=== PATIENT | female | born 1960 | race Caucasian/White ===

== ENCOUNTER 2016-10-12 22:13 | Emergency (ER) | payer MEDICARE, OTHER ==
[2016-10-12 22:33] VITALS: BP 135/83
[2016-10-12] MEDS ORDERED: Ketorolac 10 MG Tab PO ONE (22:36)
--- NOTE | 2016-10-15 10:08 | ER ---
DATE SEEN: 10/12/2016 CHIEF COMPLAINT: Right shoulder pain. HISTORY OF PRESENT ILLNESS: A 56-year-old female, who complains of right shoulder pain since this evening, [id number] pain and worse with any movement. She did fall about 2 weeks ago, and supported herself with the right upper extremity. Her pain does not seem to radiate anywhere. ALLERGIES: Celebrex and tramadol. REVIEW OF SYSTEMS: CARDIORESPIRATORY: No chest pain. No shortness of breath. HEAD AND NECK: No headache or neck pain. PHYSICAL EXAMINATION: GENERAL: Not in distress. VITAL SIGNS: Afebrile and pulse was 69 beats per minute. EXTREMITIES: Right shoulder, no obvious swelling or deformity. There is tenderness on the subacromial area, and a positive impingement sign was elicited. However, she has normal peripheral pulses, but diminished range of motion especially on abduction. There was no tenderness of the neck or the sternum. FINAL IMPRESSION: Subacromial bursitis. PLAN: 1. Toradol 10 mg p.o. t.i.d. with food. 2. Follow up in the office. Consider a corticosteroid injection as an outpatient. TIME SEEN: 10:30 p.m. /[id number] LAMBERT/ROHIT
== END 2016-10-12 22:45 | disposition home or self-care (01) ==
LOC: FB.ED 22:13
DX: M75.51 Bursitis of right shoulder (principal); Z88.5 Allergy status to narcotic agent; Z88.8 Allergy status to other drugs, medicaments and biological substances
CPT/HCPCS: 99283; A9270-GY

== ENCOUNTER 2017-09-02 06:32 | Day surgery (SDC) | payer MEDICARE, OTHER ==
[2017-09-02] MEDS ORDERED: Sodium Chloride 0.9% 10 ML Syringe FLUSH PRN (06:45)
[2017-09-02] MEDS: Lactated Ringers 1,000 ML IV SCH (07:45)
[2017-09-02] MEDS ORDERED: Midazolam 1 MG/ML 2 ML SDV IV ONE (08:00)
[2017-09-02] MEDS ORDERED: Propofol 200 MG/20 ML SDV IV ONE (08:00)
--- NOTE | 2017-09-02 08:05 | PCM.HPR ---
H & P Addendum review - H & P Addendum Review Date of Original H & P: 08/04/17 Date Reviewed: 09/02/17 Time Reviewed: 08:00 Patient was Examined: No Changes
--- NOTE | 2017-09-02 09:16 | PCM.OPNOTE ---
- General Post-Op/Procedure Note Date of Surgery/Procedure: 09/02/17 Operative Procedure(s): EGJ and colonoscopy with polypectomy Findings: Normal EGF Sig Polyp and tics Pre Op Diagnosis: Abd pain, GERD, FH Polyps Post-Op Diagnosis: Same Anesthesia Technique: MAC Primary Surgeon: Dirk Yancey Complications: None Condition: Good
[2017-09-02 10:54] VITALS: BP 140/70
--- NOTE | 2017-09-02 15:51 | OR ---
DATE OF OPERATION: 09/02/2017 SURGEON: Dirk Yancey MD PREOPERATIVE DIAGNOSES: 1. Upper abdominal pain. 2. Gastroesophageal reflux disease. 3. Family history of colon polyps. POSTOPERATIVE DIAGNOSES: 1. Normal upper endoscopy. 2. Sigmoid diverticulosis. 3. Sigmoid colon polyp. PROCEDURE PERFORMED: 1. Esophagogastroduodenoscopy. 2. Colonoscopy with polypectomy. ANESTHESIA: IV sedation. PROCEDURE IN DETAIL: The patient was brought to the procedure room, where she was placed on her left side and IV sedation administered. Oral bite block was placed and the upper endoscope advanced into the esophagus under direct vision without difficulty. Vocal cords were viewed and were normal. Scope was advanced into the stomach pouch. Gastrojejunostomy anastomosis was normal. The jejunal limb was intubated for 20 cm and all mucosal surfaces are normal. I could retroflex in the gastric pouch and the squamocolumnar junction appears normal. There is no evidence of reflux esophagitis. There are no ulcers or erosions or inflammation present. Air was removed from the stomach pouch and the scope withdrawn through the remaining esophagus, which appears normal. The patient tolerated this portion of the procedure well. Next, colonoscopy was performed, after digital rectal exam was performed, which was normal. The colonoscope was inserted and advanced to the level of the cecum without difficulty. Cecal position was confirmed by identifying the appendiceal lumen and ileocecal valve. Prep was good and surfaces were well visualized. Upon withdrawing the scope, the ascending, transverse, and descending colon were normal in appearance. The sigmoid colon was somewhat tortuous and spastic and multiple diverticula were present. There was a 6-mm sessile polyp located at 35 cm from the anal verge that was removed with the cautery snare and retrieved in the polyp trap. The rectum was normal and retroflexion was normal. Air was removed and the scope withdrawn. The patient tolerated the procedure well and returned to recovery room in stable condition. The patient will be contacted with the pathology report when it returns. If the polyp is adenomatous, she should consider repeat colonoscopy again in 3 years. If the polyp is hyperplastic, she could wait 5 years until her next colonoscopy. /[id number] MONIKA/ROHIT
== END 2017-09-02 10:50 | disposition home or self-care (01) ==
LOC: FB.SDS 06:32
PROVIDERS: ATTEND Surgery
DX: D12.5 Benign neoplasm of sigmoid colon (principal); K21.9 Gastro-esophageal reflux disease without esophagitis; K57.30 Diverticulosis of large intestine without perforation or abscess without bleeding; F32.9 Major depressive disorder, single episode, unspecified; F41.9 Anxiety disorder, unspecified; I10 Essential (primary) hypertension; E66.01 Morbid (severe) obesity due to excess calories; Z68.41 Body mass index [BMI] 40.0-44.9, adult; Z98.84 Bariatric surgery status; Z83.71 Family history of colonic polyps; Z79.899 Other long term (current) drug therapy; Z88.6 Allergy status to analgesic agent; Z88.5 Allergy status to narcotic agent; Z88.8 Allergy status to other drugs, medicaments and biological substances
CPT/HCPCS: 00813-QZ; 88305; J2250; J2704; J7120

== ENCOUNTER 2017-09-04 15:03 | Emergency (ER) | payer MEDICARE, OTHER ==
[2017-09-04] MEDS ORDERED: Lidocaine 1% 20 ML MDV INFILT ONE (15:04)
[2017-09-04 20:57] VITALS: BP 156/83
--- NOTE | 2017-09-05 09:45 | CT ---
INDICATION: Head injury. CT HEAD WITHOUT CONTRAST: Serial contiguous 2.5 and 5-mm sections were obtained through the brain without contrast, 09/04/2017, and compared with 08/14. 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 Encephalomalacia is noted in that area. No shift of midline structures was identified. Lateral ventricles are minimally prominent and perhaps minimally more prominent than on the previous study. A subcortical infarct is noted in the right posteroparietal lobe white matter, with mildly decreased density irregularly scattered through the white matter, compatible with microvascular disease additionally. Internal carotid artery calcifications are noted. A probable lacunar infarct is noted in the posterior right basal ganglia and at the more anterior basal ganglia adjacent to the anterior limb of the right internal capsule. The more posterior area of decreased density is slightly more prominent than on the previous examination. The smaller, more anterior lesion is also more visible than on the previous study. No other definite abnormal area of density was identified - no bleeding site or hematoma was identified - no definite acute intracranial abnormality was seen. Soft tissue swelling is noted anteriorly on the right, extending along the right nasal bone. In the area of soft tissue swelling along the right nasal bone, there is evidence of a fracture of the right nasal bone, which appears to be acute, producing deviation to the left. There is also fracture of the left nasal bone with angulation medially of the fracture fragments of the left nasal bone. Fracture appears to be slightly comminuted anteriorly at the tip of the nasal bone. As visualized, the paranasal sinuses and mastoid air cells appear fairly well aerated. IMPRESSION: 1. No definite acute intracranial abnormality. 2. 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 3. Mild central atrophy minimally, if at all, increased compared with 2010. 4. Probable lacunar infarcts on the right at the basal ganglia. 5. Soft tissue swelling - hematoma suggested right frontal bone and along the right nasal bone. In the area of soft tissue swelling along the right nasal bone, there is evidence of a fracture of the right nasal bone, which appears to be acute, producing deviation to the left. There is also fracture of the left nasal bone with angulation medially of the fracture fragments of the left nasal bone. Fracture appears to be slightly comminuted anteriorly at the tip of the nasal bone. 6. Progressive mild degree of microvascular disease type changes in the white matter - correlate clinically as other cause of leukoencephalopathy cannot be excluded. Total Exam DLP = 1278.68 mGy-cm. MTDD
--- NOTE | 2017-09-05 10:17 | CT ---
INDICATION: Fall, head injury. CT CERVICAL SPINE: Spiral 2.5-mm axial sections were obtained through the cervical spine with sagittal and coronal reconstructions, 09/04/2017 - no comparison was available. Total Exam DLP = 484.63 mGy-cm. Degenerative changes are noted at the atlantoodontoid joint with narrowing and sclerosis present at the joint. The odontoid and atlas appear to be intact otherwise. Hypertrophic degenerative changes are noted at the lateral masses, C3-4, C4-5, C5-6, mostly on the left, with a tilt of the spine to the left noted. Uncinate joint hypertrophic degenerative changes are most prominent at C4-5, C5-6, and C6 -7. Narrowing of the disk spaces of C4-5, C5-6, and C6-7 are noted with anterior and posterior hypertrophic degenerative changes at those levels. Some impingement on those neural foramina at those levels is noted and appears to be most prominent on the left and especially at C4-5. Vertebral body heights were maintained without a definite fracture or dislocation identified. There does appear to be a very minimal anterolisthesis at C3-4. Prevertebral space appeared to be normal. Bone density appears to be normal. A definite fracture or dislocation was not identified. IMPRESSION: 1. No acute fracture or dislocation. 2. Osteoarthritis and degenerative disk disease, as noted above with some impingement on neural foramina. MTDD
--- NOTE | 2017-09-05 10:20 | CR ---
INDICATION: Arm injury. RIGHT FOREARM: Frontal and lateral views of the right forearm revealed somewhat demineralized appearance, raising question of osteoporosis - correlate clinically. A definite fracture or dislocation was not identified. IMPRESSION: 1. No acute fracture or dislocation. 2. Possible osteoporosis - correlate clinically. MTDD
--- NOTE | 2017-09-05 10:25 | CR ---
INDICATION: Right elbow injury. RIGHT ELBOW: Three views of the right elbow revealed suggestion of a small elbow joint effusion and with less than ideal visualization of the radial head, makes it difficult to exclude a radial head fracture that is undisplaced. Specific coned down views of the radial head may be helpful for further evaluation if clinically possible. No other evidence of a fracture or dislocation was seen. Report was called to Dr. Atkins at 1707 hours, 09/04/2017. [facility]
--- NOTE | 2017-09-05 10:30 | CR ---
INDICATION: Question fracture, coned down views. RIGHT ELBOW: Multiple images of the right elbow, numbering 4 in various projections, failed to definitely reveal a fracture site or a definite effusion. There does appear to be some very minimal degenerative change at the medial elbow joint compartment and no joint effusion at this time. IMPRESSION: No definite acute fracture or dislocation. Report was given in person to Dr. Atkins soon after the examination was completed, 09/04/2017. [facility]
--- NOTE | 2017-09-09 13:33 | ER ---
DATE SEEN: 09/04/2017 HISTORY OF PRESENT ILLNESS: This 57-year-old woman, who has had previously known brain tumor, was walking, went to [employer], and fell down as she tripped over a hydraulic lift that a pickup truck had put on the ground. This occurred outside [employer]. She fell face down. No loss of conscious. She thought perhaps she broke her left arm, but she did not. She has right frontal nasal contusion, mild nasal bleeding. Moderate headache. No compromised vision. Right elbow pain and right forearm discomfort. Right frontal hematoma. Right suprabrow medial hematoma, left chin-anterior mandible hematoma with abrasion. Tetanus up-to-date. Laceration in the transseptal dermis at the juncture of the most distal septum dermis as it meets both nares. Laceration 1.5 cm long. PAST MEDICAL HISTORY: History of gastric bypass surgery, subsequent GERD, gastritis with EGD on followup, history of colon polyps, on 09/02/2017 normal endoscopy, sigmoid diverticulosis, and sigmoid colon polyp with polyp removal. ALLERGIES: Documented Cymbalta, Ketoprofen, naproxen, tramadol, valsartan. CURRENT MEDICATIONS: 1. Flonase. 2. Fluoxetine. 3. Vitamin D. 4. Calcium carbonate. 5. Ziprasidone (Geodon). 6. Vitamin B. 7. Magnesium oxide. 8. Iron. 9. Carbonyl ascorbic acid. 10.Iron 100-vitamin C tablet. SOCIAL HISTORY: The patient, because of brain tumor, lives with her mother. Mother is here and assisting. The patient was brought by ambulance to the hospital for further evaluation. The patient mentions headache and neck ache. Denies compromise of vision or paresis or weakness, but she has pain in the right elbow, wonders if it is fractured. PHYSICAL EXAMINATION: GENERAL: The patient is alert and talking. She has a C- collar in place, soft collar. She has a very prominent scar at the posterior occiput that runs down to mid cervical spine scar that is deeply invaginated to C6 level. She has mild paraspinal muscle myalgia. HEENT: Hearing is intact. TMs negative. No hemotympanum. No Best's sign. No cerebrospinal fluid in the ears or blood noted. Nares without CSF fluid. She has a 1.5 cm superior transseptal nasal laceration on the dermis that enters the right naris and has not entered into the left naris. Marked swelling of the nose with moderate swelling at the base of the nose and marked tenderness in nose. Sensory is intact. EOMs are normal. No orbital pain. No eye trapping noted. Hearing is intact. Pharynx without abnormality. Gag in place. NECK: No bruits. No cervical adenopathy anteriorly. No masses. Cervical collar in place. LUNGS: Clear without rales, rhonchi, or wheezes. HEART: S1, S2. No murmur. ABDOMEN: Soft. No guarding. No abdominal discomfort. No masses. Bowel sounds present. Increased abdominal girth. EXTREMITIES: Right shoulder not painful, but any motion of the elbow causes pain. She can flex her wrist, but she has pain in her wrist and most of her pain is the proximal flexor carpi radialis as it comes over the volar proximal forearm surface. No dysesthesia or loss of sensation in her hands. Hand prick stitcher is appropriate. She can move her fingers appropriately, and the wrist is appropriate, even though she has pain in her left wrist. Lower extremities, bilateral minimal knee abrasion and no swelling noted. There is mild tenderness. Bilateral total knee surgery scars noted without patellar subluxation or dislocation. Dorsalis pedis intact. No edema of the lower extremities. DIAGNOSTIC DATA: CT of the head and neck is negative. Right elbow, pain in the proximal right radial head. Antecubital surface, mild swelling. Radial carpal structures and carpal bones negative to palpation. Radial and ulnar pulses intact. She has marked limitation of elbow because of pain. X-ray of the elbow did not reveal a fracture. Subsequently, once this was completed, coned down views of the elbow did not reveal a fracture. No evidence for sail sign. No suggestion of hematoma at the elbow. ASSESSMENT: 1. Right elbow trauma with ligamentous strain without fracture or hematoma or effusion. 2. Right brow hematoma with contusion of soft tissue, supraorbital region above the orbit. 3. Left anterior mandible contusion with swelling. 4. Right elbow contusion and strain without fracture. 5. Bruise of thighs without abnormalities. 6. Bilateral total knee replacement with contusion of knees without significant trauma. 7. Obesity. 8. Degenerative disease of the cervical spine. The patient reassured. PROCEDURE: Laceration repair of the anterior septal dermis, 1.5 cm. Injection of subcutaneous lidocaine and then closed with interrupted 5-0 Ethilon stitches. No further intranasal bleeding noted. The nasal bleeding was from the external nose. Nasal fractures, nondisplaced, slightly displaced septum at this point. No evidence for septal hematoma. The patient dismissed to follow up with doctor in a week or earlier if worse. She was given 8 tablets of Vicodin and use 1000 mg Tylenol and 600 mg ibuprofen together p.r.n. pain and for breakthrough pain use Vicodin. The patient was seen 15 minutes after arrival. /[id number] YUDITH/ROHIT
== END 2017-09-04 18:20 | disposition home or self-care (01) ==
LOC: FB.ED 15:03
DX: S01.21XA Laceration without foreign body of nose, initial encounter (principal); S56.911A Strain of unspecified muscles, fascia and tendons at forearm level, right arm, initial encounter; S50.01XA Contusion of right elbow, initial encounter; S70.12XA Contusion of left thigh, initial encounter; S70.11XA Contusion of right thigh, initial encounter; S00.83XA Contusion of other part of head, initial encounter; S80.02XA Contusion of left knee, initial encounter; S80.01XA Contusion of right knee, initial encounter; E66.9 Obesity, unspecified; M50.30 Other cervical disc degeneration, unspecified cervical region; Z88.8 Allergy status to other drugs, medicaments and biological substances; W01.198A Fall on same level from slipping, tripping and stumbling with subsequent striking against other object, initial encounter
CPT/HCPCS: 12011; 70450; 72125; 73070-RT; 73080-RT; 73090-RT; 99284

== ENCOUNTER 2018-02-01 14:35 | Emergency (ER) | payer MEDICARE, OTHER ==
[2018-02-01] MEDS ORDERED: Diphtheria,Pertussis(Acell),Tetanus Vaccine 0.5 ML SDV IM ONE (15:40)
--- NOTE | 2018-02-01 15:45 | EDM.PDOC ---
ED HPI GENERAL MEDICAL PROBLEM - General Chief Complaint: General Stated Complaint: FALL,HURT FACE AND LEFT PINKY Time Seen by Provider: 02/01/18 15:42 Source of Information: Reports: Patient History Limitations: Reports: No Limitations - History of Present Illness INITIAL COMMENTS - FREE TEXT/NARRATIVE: Patient tripped and fell at work, sustained facial lacerations and abrasions. No loss of consciousness, denies headache. Also complains of left 4th and 5th digit pain. Onset: Today Location: Reports: Head, Upper Extremity, Left Severity: Moderate Worsens with: Reports: None - Related Data Allergies Allergy/AdvReac Type Severity Reaction Status Date / Time duloxetine [From Cymbalta] Allergy Cannot Verified 09/04/17 15:21 Remember ketoprofen Allergy Cannot Verified 09/04/17 15:21 Remember naproxen Allergy Cannot Verified 09/04/17 15:21 Remember tramadol [From Ultram] Allergy Dizziness Verified 09/04/17 15:21 valsartan [From Diovan] Allergy Cannot Verified 09/04/17 15:21 Remember Home Meds: Home Meds FLUoxetine [PROzac] 40 mg PO DAILY 10/12/16 [History] Calcium Carbonate/Vitamin D3 [Calcium 1,000 + D3 Caplet] 1 each PO DAILY [History] Cholecalciferol (Vitamin D3) [Vitamin D3] 1,000 unit PO DAILY 09/01/17 [History] Fluticasone Propionate [Flonase] 2 spray NS DAILY PRN 09/01/17 [History] Iron,Carbonyl/Ascorbic Acid [Iron 100-Vitamin C Tablet] 1 each PO DAILY [History] Magnesium Oxide [Magnesium] 500 mg PO DAILY 09/01/17 [History] Vitamin B Complex [B Complex] 1 each PO DAILY 09/01/17 [History] Ziprasidone HCl [Geodon] 5 mg PO DAILY 09/01/17 [History] Past Medical History HEENT History: Reports: None, Impaired Vision Cardiovascular History: Reports: Hypertension Other Cardiovascular History: NOT CURRENTLY ON MEDS SINCE 2010. Respiratory History: Reports: None Gastrointestinal History: Reports: Gastritis, GERD Genitourinary History: Reports: Other (See Below) Other Genitourinary History: ACUTE CYSTITIS W/O HEMATURIA [employer]LO[employer]ING GRADER History: Reports: None Musculoskeletal History: Reports: None, Arthritis Neurological History: Reports: Other (See Below) Other Neuro History: CANCEROUS BRAIN TUMOR 2010. Psychiatric History: Reports: Anxiety, Depression Endocrine/Metabolic History: Reports: Obesity/BMI 30+ Hematologic History: Reports: None, Anemia Immunologic History: Reports: None Oncologic (Cancer) History: Reports: Brain Dermatologic History: Reports: None - Infectious Disease History Infectious Disease History: Reports: Chicken Pox, Measles, Mumps - Past Surgical History Head Surgeries/Procedures: Reports: Craniotomy HEENT Surgical History: Reports: None GI Surgical History: Reports: Bariatric Procedure, Colonoscopy Female Surgical History: Reports: None Neurological Surgical History: Reports: Other (See Below) Other Neurological Surgeries/Procedures: CRANIOTOMY FOR CA OF BRAIN. Musculoskeletal Surgical History: Reports: Knee Replacement Other Musculoskeletal Surgeries/Procedures:: BILATERAL PARTIAL KNEE REPLACEMENTS. Oncologic Surgical History: Reports: Other (See Below) Other Oncologic Surgeries/Procedures: CRANIOTOMY Social & Family History - Family History Family Medical History: Noncontributory HEENT: Reports: Impaired Vision GI: Reports: Colon Polyps - Caffeine Use Caffeine Use: Reports: Soda Caffeine Use Comment: states that she quit drinking pop many years ago. ED ROS GENERAL - Review of Systems Review Of Systems: ROS reveals no pertinent complaints other than HPI. ED EXAM, GENERAL - Physical Exam Exam: See Below Exam Limited By: No Limitations General Appearance: Alert, WD/WN, No Apparent Distress Eye Exam: Bilateral Eye: EOMI, PERRL Ears: Normal External Exam Nose: Normal Inspection Throat/Mouth: No Airway Compromise Neck: Other (2 facial lacerations lateral to left eye, facial abrasions also present) Respiratory/Chest: No Respiratory Distress, Lungs Clear, Normal Breath Sounds Cardiovascular: Regular Rate, Rhythm Peripheral Pulses: 2+: Radial (L) Back Exam: Full Range of Motion Extremities: Other (tenderness to base of left 4th and 5th digits) Neurological: Alert, Oriented, Normal Cognition, No Motor/Sensory Deficits Psychiatric: Normal Affect, Normal Mood ED GENERAL MEDICAL PROCEDURES - Laceration/Wound Repair Face Lac/wound length in cm: 3 (1.5 + 1.5) Appearance: Superficial, Clean Distal NVT: Neuro & Vascular Intact Skin Prep: Chlorhexidine (Hibiciens) Closed with: Wound Adhesive Drain Placement: No Tetanus Status Addressed: Yes Complications: No - Splinting Left 5th Digit Splint Site: left 5th digit Pre-procedure NV status: Normal Post-procedure NV status: Normal Splint Material: Aluminum-Foam Applied & Form Fitted By: Nurse Provider Post-Splint Application NV Check: NV Status Normal, Good Position Complications: No Course - Orders/Labs/Meds Orders: Active Orders 24 hr Category Date Time Status Splinting [RC] ASDIRECTED Care 02/01/18 17:02 Active Vaccines to be Administered [RC] PER UNIT ROUTINE Care 02/01/18 15:41 Active Hand Comp Min 3V Lt [CR] Stat Exams 02/01/18 15:33 Taken Head wo Cont [CT] Stat Exams 02/01/18 15:33 Taken Meds: Medications Discontinued Medications Generic Name Dose Route Start Last Admin Trade Name Freq PRN Reason Stop Dose Admin Diphtheria/Tetanus/Acell Pertussis 0.5 ml 02/01/18 15:40 Adacel IM 02/01/18 15:41 .ONCE ONE - Radiology Interpretation Free Text/Narrative:: CT Head: NAD Left Hand XR: fracture to base of middle phalanx of left 5th digit Departure - Departure Time of Disposition: 17:16 Disposition: Home, Self-Care 01 Condition: Good Clinical Impression: Facial laceration Qualifiers: Encounter type: initial encounter Qualified Code(s): S01.81XA - Laceration without foreign body of other part of head, initial encounter Finger fracture, left Qualifiers: Encounter type: initial encounter Finger: little finger Fracture type: closed Phalanx: middle Fracture alignment: displaced Qualified Code(s): S62.627A - Displaced fracture of medial phalanx of left little finger, initial encounter for closed fracture Head trauma Qualifiers: Encounter type: initial encounter Qualified Code(s): S09.90XA - Unspecified injury of head, initial encounter - Discharge Information *PRESCRIPTION DRUG MONITORING PROGRAM REVIEWED*: No *COPY OF PRESCRIPTION DRUG MONITORING REPORT IN PATIENT LIZBETH: Not Applicable Instructions: Cast or Splint Care, Adult, [id number], Laceration Care, Adult , Stitches, Moore, or Adhesive Wound Closure, [id number], Finger Fracture, Head Injury, Adult, [id number] Referrals: PCP,None [Primary Care Provider] - Forms: ED Department Discharge, ED Return to Work/School Form Additional Instructions: Follow up with your primary physician in 2-3 days. Return to the ER with any concerns - My Orders Last 24 Hours: My Active Orders 02/01/18 15:33 Hand Comp Min 3V Lt [CR] Stat Head wo Cont [CT] Stat 02/01/18 15:41 Vaccines to be Administered [RC] PER UNIT ROUTINE 02/01/18 17:02 Splinting [RC] ASDIRECTED - Assessment/Plan Last 24 Hours: My Active Orders 02/01/18 15:33 Hand Comp Min 3V Lt [CR] Stat Head wo Cont [CT] Stat 02/01/18 15:41 Vaccines to be Administered [RC] PER UNIT ROUTINE 02/01/18 17:02 Splinting [RC] ASDIRECTED
[2018-02-01 17:39] VITALS: BP 161/85
--- NOTE | 2018-02-04 10:42 | CR ---
INDICATION: Injury. LEFT HAND, THREE VIEWS: FINDINGS: There is generalized osteopenia. There is mild generalized osteoarthritis. I do not see an acute fracture or dislocation. IMPRESSION: No fracture is shown. If symptoms persist, consider followup x- rays in 7-10 days. MASHAD
== END 2018-02-01 17:50 | disposition home or self-care (01) ==
LOC: FB.ED 14:35
DX: S09.90XA Unspecified injury of head, initial encounter (principal); S62.627A Displaced fracture of middle phalanx of left little finger, initial encounter for closed fracture; S01.81XA Laceration without foreign body of other part of head, initial encounter; Z23 Encounter for immunization; I10 Essential (primary) hypertension; E66.9 Obesity, unspecified; Z88.8 Allergy status to other drugs, medicaments and biological substances; W01.0XXA Fall on same level from slipping, tripping and stumbling without subsequent striking against object, initial encounter; Y99.0 Civilian activity done for income or pay
CPT/HCPCS: 12013; 70450; 73130-LT; 90471; 90715; 99284

== ENCOUNTER → 2019-04-05 | Outpatient (CLI) | payer MEDICARE, OTHER | LOC: FB.MRI 10:35 | PROVIDERS: ATTEND Orthopaedic Surgery | DX: M25.552 Pain in left hip (principal); S32.592A Other specified fracture of left pubis, initial encounter for closed fracture; X58.XXXA Exposure to other specified factors, initial encounter; M16.0 Bilateral primary osteoarthritis of hip | CPT/HCPCS: 73721-LT ==

== ENCOUNTER 2019-08-26 13:29 | Emergency (ER) | payer MEDICARE, OTHER ==
[2019-08-26] MEDS ORDERED: Morphine 2 MG/ML Syringe IVPUSH ONE (13:45)
[2019-08-26] MEDS ORDERED: Ketorolac 30 MG/ML SDV IVPUSH ONE (15:00)
--- NOTE | 2019-08-26 15:04 | EDM.PDOC ---
ED HPI GENERAL MEDICAL PROBLEM - General Chief Complaint: Head Injury Stated Complaint: TRIPPED HIT HEAD Time Seen by Provider: 08/26/19 13:35 Source of Information: Reports: Patient History Limitations: Reports: No Limitations - History of Present Illness INITIAL COMMENTS - FREE TEXT/NARRATIVE: Patient presented to the ED because she tripped and fell infront of [employer] and landed on her face. she sustained abrasion on her left eyebrow,nasal bridge an c /o 7/10 pain on her LUE. There was no LOC after the fall. left arm Pain Score (Numeric/FACES): 8 - Related Data Allergies Allergy/AdvReac Type Severity Reaction Status Date / Time duloxetine [From Cymbalta] Allergy Cannot Verified 08/26/19 13:36 Remember ketoprofen Allergy Cannot Verified 08/26/19 13:36 Remember naproxen Allergy Cannot Verified 08/26/19 13:36 Remember tramadol [From Ultram] Allergy Dizziness Verified 08/26/19 13:36 valsartan [From Diovan] Allergy Cannot Verified 08/26/19 13:36 Remember Home Meds: Home Meds FLUoxetine [PROzac] 40 mg PO DAILY 10/12/16 [History] Calcium Carbonate/Vitamin D3 [Calcium 1,000 + D3 Caplet] 1 each PO DAILY [History] Cholecalciferol (Vitamin D3) [Vitamin D3] 1,000 unit PO DAILY 09/01/17 [History] Fluticasone Propionate [Flonase] 2 spray NS DAILY PRN 09/01/17 [History] Iron,Carbonyl/Ascorbic Acid [Iron 100-Vitamin C Tablet] 1 each PO DAILY [History] Magnesium Oxide [Magnesium] 500 mg PO DAILY 09/01/17 [History] Vitamin B Complex [B Complex] 1 each PO BID 09/01/17 [History] Lisinopril [Zestril] 5 mg PO DAILY 04/23/18 [History] FLUoxetine [PROzac] 10 mg PO QAM 04/24/18 [History] Acetaminophen/oxyCODONE [Percocet 325-5 MG] 1 each PO Q4H PRN #15 tab 08/26/19 [ Rx] Aspirin [Adult Low Dose Aspirin EC] 81 mg PO DAILY 08/26/19 [History] Past Medical History HEENT History: Reports: None, Impaired Vision Cardiovascular History: Reports: Hypertension Other Cardiovascular History: NOT CURRENTLY ON MEDS SINCE 2010. 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 Psychiatric History: Reports: Anxiety, Depression, Panic Attack Endocrine/Metabolic History: Reports: Obesity/BMI 30+ Hematologic History: Reports: Anemia, B12 Deficiency Immunologic History: Reports: None Oncologic (Cancer) History: Reports: Brain Dermatologic History: Reports: None - Infectious Disease History Infectious Disease History: Reports: Chicken Pox, Measles, Mumps - Past Surgical History Head Surgeries/Procedures: Reports: Craniotomy HEENT Surgical History: Reports: None, Other (See Below) Other HEENT Surgeries/Procedures: Brain tumor Cardiovascular Surgical History: Reports: None GI Surgical History: Reports: Bariatric Procedure, Cholecystectomy, Colonoscopy , EGD, Other (See Below) Other GI Surgeries/Procedures: tummy tuck Female Surgical History: Reports: None Endocrine Surgical History: Reports: None Neurological Surgical History: Reports: Other (See Below) Other Neurological Surgeries/Procedures: CRANIOTOMY FOR CA OF BRAIN. Musculoskeletal Surgical History: Reports: Carpal Tunnel, Knee Replacement Other Musculoskeletal Surgeries/Procedures:: BILATERAL PARTIAL KNEE REPLACEMENTS. Oncologic Surgical History: Reports: Other (See Below) Other Oncologic Surgeries/Procedures: CRANIOTOMY Social & Family History - Family History Family Medical History: Noncontributory HEENT: Reports: Impaired Vision GI: Reports: Colon Polyps - Tobacco Use Smoking Status *Q: Never Smoker - Caffeine Use Caffeine Use: Reports: None Caffeine Use Comment: states that she quit drinking pop many years ago. - Recreational Drug Use Recreational Drug Use: No ED ROS GENERAL - Review of Systems Review Of Systems: See Below Constitutional: Reports: No Symptoms HEENT: Reports: No Symptoms Respiratory: Reports: No Symptoms Cardiovascular: Reports: No Symptoms Endocrine: Reports: No Symptoms GI/Abdominal: Reports: No Symptoms : Reports: No Symptoms Musculoskeletal: Reports: No Symptoms Skin: Reports: No Symptoms, Other Neurological: Reports: No Symptoms Psychiatric: Reports: No Symptoms ED EXAM, HEAD INJURY - Physical Exam Exam: See Below Exam Limited By: No Limitations General Appearance: Alert, No Apparent Distress Head: Other (abrasions on left eyebrow,nasal bridge) Ears: Normal External Exam, Normal Canal, Hearing Grossly Normal Nose: Normal Inspection, Normal Mucousa, No Blood Throat/Mouth: Normal Inspection, Normal Lips, Normal Teeth Neck: Non-Tender, Full Range of Motion, Normal Alignment Respiratory: No Respiratory Distress, Lungs Clear, Normal Breath Sounds Cardiovascular: Normal Peripheral Pulses, Regular Rate, Rhythm, No Edema, No Gallop, No JVD, No Murmur, No Rub Back Exam: Normal Inspection, Full Range of Motion Extremities: Normal Inspection, Normal Range of Motion, Non-Tender, No Pedal Edema, Normal Capillary Refill 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: 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-XII nml As Tested, No Motor/Sensory Deficits, Normal Mood/ Affect, Oriented x 3 Course - Vital Signs Text/Narrative:: Xray reviewed with patient Shoulder was immobilized and an arm sling was provided She will follow up with [facility] this coming week Toradol 30 ng IV Morphine 2 mg IV x1 Last Recorded V/S: Last Vital Signs Temp 36.3 C 08/26/19 15:15 Pulse 60 08/26/19 15:15 Resp 13 08/26/19 15:15 BP 153/81 H 08/26/19 15:15 Pulse Ox 100 08/26/19 15:15 - Orders/Labs/Meds Labs: Laboratory Tests 08/26/19 08/26/19 Range/Units 13:59 13:59 WBC 6.9 (4.5-12.0) X10-3/uL RBC 4.05 (3.23-5.20) x10(6)uL Hgb 11.9 (11.5-15.5) g/dL Hct 35.7 (30.0-51.3) % MCV 88.0 (80-96) fL MCH 29.4 (27.7-33.6) pg MCHC 33.4 (32.2-35.4) g/dL RDW 13.9 (11.5-15.5) % Plt Count 264 (125-369) X10(3)uL MPV 11.3 H (7.4-10.4) fL Neut % (Auto) 72.0 (46-82) % Lymph % (Auto) 19.0 (13-37) % Cook % (Auto) 6.8 (4-12) % Eos % (Auto) 1 (1.0-5.0) % Baso % (Auto) 1 (0-2) % Neut # (Auto) 4.9 (1.6-8.3) # Lymph # (Auto) 1.3 (0.6-5.0) # Cook # (Auto) 0.5 (0.0-1.3) # Eos # (Auto) 0.1 (0.0-0.8) # Baso # (Auto) 0.1 (0.0-0.2) # Sodium 139 (135-145) mmol/L Potassium 4.8 (3.5-5.3) mmol/L Chloride 104 (100-110) mmol/L Carbon Dioxide 28 (21-32) mmol/L BUN 19 H (7-18) mg/dL Creatinine 0.9 (0.55-1.02) mg/dL Est Cr Clr Drug Dosing TNP Estimated GFR (MDRD) > 60 (>60) BUN/Creatinine Ratio 21.1 H (9-20) Glucose 95 (80-116) mg/dL Calcium 9.6 (8.6-10.2) mg/dL Meds: Medications Discontinued Medications Generic Name Dose Route Start Last Admin Trade Name Freq PRN Reason Stop Dose Admin Ketorolac Tromethamine 30 mg 08/26/19 15:00 08/26/19 15:04 Toradol IVPUSH 08/26/19 15:01 30 mg ONETIME ONE Administration Morphine Sulfate 2 mg 08/26/19 13:45 08/26/19 13:50 Morphine IVPUSH 08/26/19 13:46 2 mg ONETIME ONE Administration Sodium Chloride 10 ml 08/26/19 15:05 08/26/19 15:05 Saline Flush FLUSH 10 ml ASDIRECTED PRN Administration IV Use Departure - Departure Time of Disposition: 15:00 Disposition: Home, Self-Care 01 Condition: Good Clinical Impression: Left humeral fracture - Discharge Information Prescriptions: Acetaminophen/oxyCODONE [Percocet 325-5 MG] 1 each PO Q4H PRN #15 tab PRN Reason: Pain Instructions: Humerus Fracture Treated With Immobilization Referrals: PCP,None [Ordering Only Provider] - Forms: ED Department Discharge Additional Instructions: please read discharge instructions on humeral fracture take percocet 5/325, 1- tablets every 4 hours as needed for pain follow up with [facility] in [place] next week Sepsis Event Note - Evaluation Sepsis Screening Result: No Definite Risk - Focused Exam Date Exam was Performed: 08/27/19 Time Exam was Performed: 11:23
[2019-08-26] MEDS ORDERED: Sodium Chloride 0.9% 10 ML Syringe FLUSH PRN (15:05)
--- NOTE | 2019-08-26 15:23 | CT ---
INDICATION: Fall hitting curb. Soft tissue swelling left frontal above eyebrow. CT HEAD WITHOUT CONTRAST: Spiral 3.75 mm axial sections were obtained through the brain without contrast with sagittal and coronal reconstructions and axial reconstructions 08/26/19 and compared with previous examination of 02/01/18. Total exam DLP was 1296.53 mGy-cm. The visualized paranasal sinuses appear to be well aerated, except to note some minimal thickening of the lining of the left maxillary antrum at its base, which is slightly more prominent than on the previous examination. The mastoid air cells again show several inferior air cells on the left that are probably fluid-filled and also on the right. This may represent a mild degree of bilateral mastoiditis. The nasal bones are again noted to be moderately deviated to the left, possibly on the basis of previous trauma. A scalp hematoma is noted over the left frontal bone extending from the midline to the left, measuring a maximum depth of approximately 8.2 mm. No underlying cranial fracture site was identified. There is question of a small punched out lesion in the left frontal bone, which was present previously and may simply represent an anatomic variant. No other definite cranial abnormality was identified. Post craniotomy site is noted in the occipital area with cerebellar encephalomalacia appearing stable. No bleeding site or hematoma was identified. There is a definite subcortical infarct in the posterior parietal area on the right, which was present previously. Bilateral white matter changes appear to be slightly more prominent than on the previous study compatible with progressive microvascular disease, although other cause of leukoencephalopathy cannot be excluded. No shift of midline structures was seen. The lateral ventricles are slightly prominent suggesting a mild degree of central atrophy. The third and fourth ventricles appear grossly normal. An additional area of relative low density is noted in the anterior limb of the right internal capsule and very minimally in the anterior limb of the left internal capsule, which may represent minimal areas of lacunar infarct present present previously. No other abnormal areas of density were identified. Calcifications are noted in the internal carotid arteries. The orbits appear to be intact. IMPRESSION: 1. No acute intracranial abnormality was suggested - no bleeding site or hematoma was seen. 2. Scalp hematoma left frontal. 3. Progressive microvascular disease type changes in the white matter, although other cause of leukoencephalopathy cannot be excluded, changes are mild -to-moderate at this time. 4. Area of encephalomalacia and postsurgical change right cerebellum - stable. 5. 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 6. Lacunar infarcts anterior limbs of internal capsules bilaterally. 7. Mild central atrophy. 8. Thickening of the lining of the left maxillary antrum is noted with suggestion of one tiny area of air-fluid level which could represent acute sinusitis but should be correlated clinically. This is mostly a new finding when compared with the previous study which showed only a very tiny amount of thickening of the lining in that area. Also the possibility of a mild degree of mastoiditis would be a consideration since there are some unaerated air cells suggested. Report was called to Dr. Woods at 1450 hours. [facility]
[2019-08-26 18:29] VITALS: BP 153/81; PULSE 60
--- NOTE | 2019-08-27 07:55 | CT ---
INDICATION: Fall, trauma to facial bones area. CT MAXILLOFACIAL WITHOUT CONTRAST: Spiral 2.5 mm axial sections were obtained with sagittal and coronal reconstructions 08/26/19 - no comparison. Total exam DLP was 731.81 mGy-cm. A scalp hematoma of moderate size is noted overlying the left frontal bone above the orbit. No underlying fracture site was identified. There was a small lytic area in the left frontal bone which was present on a previous CT of the head and is of questionable significance, since it does not appear grossly changed. No definite acute fracture was identified although there is some deformity of the nasal bones which are deviated somewhat to the left likely on the basis of previous trauma or developmental in nature. There also appears to be a trivial degree of thickening of the lining of the right maxillary antrum inferiorly with the lining of the base of the right frontal air cell also showing a small segment of thickening. No acute fracture or dislocation was identified. IMPRESSION: 1. No acute fracture or dislocation. 2. Question minimal sinusitis at the left mastoid air cell, there is also noted some very minimal thickening of the lining of the right maxillary antrum at its floor and the base of the right frontal air cell. 3. Nasal bone deviation to the left is noted which may be developmental or due to previous trauma - correlate clinically. 4. Cannot exclude a mild degree of mastoiditis. Report was called to Dr. Woods at 1450 hours. [facility]
--- NOTE | 2019-08-27 08:07 | CR ---
INDICATION: Fall. LEFT SHOULDER: Three views of the left shoulder were obtained 08/26/19 - no comparison study. There is a comminuted fracture of the proximal humeral metaphysis which appears to be in adequate position and alignment. No significant appearing degenerative changes are noted. IMPRESSION: Comminuted fracture of the proximal humerus at the surgical neck with adequate position and alignment. Report was called to Dr. Woods at 1450 hours. [facility]
--- NOTE | 2019-08-27 08:11 | CR ---
INDICATION: Fall. . LEFT ELBOW: Four views of the left elbow were obtained and revealed no evidence of a fracture or dislocation or other significant appearing bone or joint abnormality. Study was limited due to the patient's inability to position into the right angle view for the lateral projection. IMPRESSION: No acute fracture or dislocation at the left elbow. Report called to Dr. Woods at 1450 hours. [facility]
--- NOTE | 2019-08-27 08:17 | CR ---
INDICATION: Fall. LEFT WRIST: Three views of the left wrist revealed demineralization suggesting osteoporosis - correlate clinically. A definite fracture, dislocation or other acute bone or joint abnormality was not identified. There is noted very minimal degenerative change at the naviculomultangular joints. Report was called to Dr. Woods at 1450 hours. [facility]
== END 2019-08-26 15:25 | disposition home or self-care (01) ==
LOC: FB.ED 13:29
DX: S42.212A Unspecified displaced fracture of surgical neck of left humerus, initial encounter for closed fracture (principal); I10 Essential (primary) hypertension; K21.9 Gastro-esophageal reflux disease without esophagitis; E66.9 Obesity, unspecified; F41.9 Anxiety disorder, unspecified; F32.9 Major depressive disorder, single episode, unspecified; M19.90 Unspecified osteoarthritis, unspecified site; G62.9 Polyneuropathy, unspecified; Z79.82 Long term (current) use of aspirin; Z79.899 Other long term (current) drug therapy; Z88.8 Allergy status to other drugs, medicaments and biological substances; Z68.34 Body mass index [BMI] 34.0-34.9, adult; W01.0XXA Fall on same level from slipping, tripping and stumbling without subsequent striking against object, initial encounter
CPT/HCPCS: 36415; 70450; 70486; 73030-LT; 73080-LT; 73110-LT; 80048; 85025; 96374; 96375; 99285-25; J1885; J2270

== ENCOUNTER 2021-01-14 13:37 | Emergency (ER) | payer MEDICARE, OTHER ==
[2021-01-14] MEDS ORDERED: Acetaminophen/HYDROcodone 325-5 MG Tab PO ONE ×2 (13:38→13:55)
--- NOTE | 2021-01-14 13:47 | EDM.PDOC ---
ED HPI GENERAL MEDICAL PROBLEM - General Stated Complaint: L WRIST/ARM PAIN Time Seen by Provider: 01/14/21 13:45 Source of Information: Reports: Patient History Limitations: Reports: No Limitations - History of Present Illness INITIAL COMMENTS - FREE TEXT/NARRATIVE: 60-year-old female who reports that she has problems with balance and she lost her balance and fell landing on her left side. She caught herself with her left outstretched arm and hit on her left hip. She did not hit her head. This occurred approximately 1 PM today. EMS was called to the scene and they did place her in a splint but the patient arrives to the emergency department via POV with her mother. She is complaining of pain in her left wrist and forearm as well as pain in the left hip. She has been ambulatory. Any movement of her left hand and attempts to move her left wrist cause severe pain and she would rate this pain as a 10/10. The pain is a sharp pain. It seems to radiate from her wrist to her arm. There was no loss of consciousness. No weakness or dizziness. No abdominal pain. No nausea or vomiting. There were no antecedent problems. She felt completely well prior to this occurring. There are no other associated signs or symptoms. There are no other modifying factors. Onset: Today (1 PM) Duration: Constant Location: Reports: Upper Extremity, Left (Left wrist and forearm.), Lower Extremity, Left (Left hip) Quality: Reports: Sharp Severity: Severe Improves with: Reports: Immobilization, Rest Worsens with: Reports: Other (Palpation), Movement Context: Reports: Trauma Associated Symptoms: Reports: No Other Symptoms (Except as above) Treatments [employer]: Reports: Other (see below) (Nothing) Left Wrist Pain Score (Numeric/FACES): 10 - Related Data Allergies Allergy/AdvReac Type Severity Reaction Status Date / Time duloxetine [From Cymbalta] Allergy Cannot Verified 08/26/19 13:36 Remember ketoprofen Allergy Cannot Verified 08/26/19 13:36 Remember naproxen Allergy Cannot Verified 08/26/19 13:36 Remember tramadol [From Ultram] Allergy Dizziness Verified 08/26/19 13:36 valsartan [From Diovan] Allergy Cannot Verified 08/26/19 13:36 Remember Home Meds: Home Meds FLUoxetine [PROzac] 40 mg PO DAILY 10/12/16 [History] Calcium Carbonate/Vitamin D3 [Calcium 1,000 + D3 Caplet] 1 each PO DAILY 09/01/17 [History] Cholecalciferol (Vitamin D3) [Vitamin D3] 1,000 unit PO DAILY 09/01/17 [History] Fluticasone Propionate [Flonase] 2 spray NS DAILY PRN 09/01/17 [History] Iron,Carbonyl/Ascorbic Acid [Iron 100-Vitamin C Tablet] 1 each PO DAILY 09/01/17 [History] Magnesium Oxide [Magnesium] 500 mg PO DAILY 09/01/17 [History] Vitamin B Complex [B Complex] 1 each PO BID 09/01/17 [History] lisinopriL [Zestril] 5 mg PO DAILY 04/23/18 [History] FLUoxetine [PROzac] 10 mg PO QAM 04/24/18 [History] Acetaminophen/oxyCODONE [Percocet 325-5 MG] 1 each PO Q4H PRN #15 tab 08/26/19 [Rx] Aspirin [Adult Low Dose Aspirin EC] 81 mg PO DAILY 08/26/19 [History] Acetaminophen/HYDROcodone [HYDROcodone-Acetaminophen 5-325 MG *] 1 - 2 tab PO Q6H PRN #12 each 01/14/21 [Rx] Past Medical History HEENT History: Reports: Impaired Vision Cardiovascular History: Reports: Hypertension Other Cardiovascular History: NOT CURRENTLY ON MEDS SINCE 2010. Gastrointestinal History: Reports: Gastritis, GERD Genitourinary History: Reports: Urinary Incontinence, Other (See Below) Other Genitourinary History: ACUTE CYSTITIS W/O HEMATURIA Musculoskeletal History: Reports: Osteoarthritis Neurological History: Reports: Neuropathy, Peripheral, Other (See Below) Other Neuro History: CANCEROUS BRAIN TUMOR 2010. Psychiatric History: Reports: Anxiety, Depression, Panic Attack Endocrine/Metabolic History: Reports: Obesity/BMI 30+ Hematologic History: Reports: Anemia, B12 Deficiency Oncologic (Cancer) History: Reports: Brain - Infectious Disease History Infectious Disease History: Reports: Chicken Pox, Measles, Mumps - Past Surgical History Head Surgeries/Procedures: Reports: Craniotomy HEENT Surgical History: Reports: Other (See Below) Other HEENT Surgeries/Procedures: Brain tumor GI Surgical History: Reports: Bariatric Procedure, Cholecystectomy, Colonoscopy, EGD, Other (See Below) Other GI Surgeries/Procedures: tummy tuck Neurological Surgical History: Reports: Other (See Below) Other Neurological Surgeries/Procedures: CRANIOTOMY FOR CA OF BRAIN. Musculoskeletal Surgical History: Reports: Carpal Tunnel, Knee Replacement Other Musculoskeletal Surgeries/Procedures:: BILATERAL PARTIAL KNEE REPLACEMENTS. Oncologic Surgical History: Reports: Other (See Below) Other Oncologic Surgeries/Procedures: CRANIOTOMY Social & Family History - Family History HEENT: Reports: Impaired Vision GI: Reports: Colon Polyps - Tobacco Use Tobacco Use Status *Q: Never Tobacco User - Caffeine Use Caffeine Use: Reports: None Caffeine Use Comment: states that she quit drinking pop many years ago. - Alcohol Use Alcohol Use History: No - Living Situation & Occupation Living situation: Reports: Single ED ROS GENERAL - Review of Systems Review Of Systems: See Below Constitutional: Denies: Fever, Chills HEENT: Denies: Throat Pain, Vertigo Respiratory: Denies: Shortness of Breath, Cough Cardiovascular: Denies: Chest Pain, Palpitations GI/Abdominal: Denies: Abdominal Pain, Nausea, Vomiting : Denies: Dysuria, Hematuria Musculoskeletal: Reports: Arm Pain, Leg Pain. Denies: Neck Pain, Back Pain Skin: Denies: Rash, Wound Neurological: Denies: Dizziness, Headache Hematologic/Lymphatic: Denies: Easy Bleeding, Easy Bruising ED EXAM, GENERAL - Physical Exam Exam: See Below Exam Limited By: No Limitations General Appearance: Alert, WD/WN, Moderate Distress (Is in acute pain) Eye Exam: Bilateral Eye: EOMI, Normal Inspection Ears: Normal External Exam, Hearing Grossly Normal Ear Exam: Bilateral Ear: Auricle Normal Nose: Normal Inspection, Normal Mucosa, No Blood Throat/Mouth: Normal Inspection, Normal Oropharynx, Normal Voice, No Airway Compromise Head: Atraumatic, Normocephalic Neck: Normal Inspection, Supple, Non-Tender, Full Range of Motion Respiratory/Chest: No Respiratory Distress, Lungs Clear, Normal Breath Sounds, No Accessory Muscle Use, Chest Non-Tender Cardiovascular: Normal Peripheral Pulses, Regular Rate, Rhythm, No Murmur Peripheral Pulses: 2+: Radial (L), Radial (R) GI/Abdominal: Normal Bowel Sounds, Soft, Non-Tender, No Mass Back Exam: Normal Inspection, Full Range of Motion Extremities: No Pedal Edema, Normal Capillary Refill, Arm Pain (Tender with swelling and crepitus on the distal forearm and left wrist area.), Leg Pain (Tenderness over the left hip but she has full range of motion in this and she has been bearing weight without problems.) Neurological: Alert, CN II-XII Intact, No Motor/Sensory Deficits Psychiatric: Normal Affect Skin Exam: Warm, Dry, Intact, Normal Color, No Rash ED GENERAL MEDICAL PROCEDURES - Splinting Left Upper Extremity Pre-procedure NV status: Normal Post-procedure NV status: Normal Splint Type: Custom Splint Material: Fiberglass Splint Design: Sugar Tong Applied & Form Fitted By: Provider Provider Post-Splint Application NV Check: NV Status Normal Complications: No Course - Vital Signs Last Recorded V/S: Last Vital Signs Temp 37.0 C 01/14/21 13:38 Pulse 68 01/14/21 13:38 Resp 18 01/14/21 13:38 BP 130/69 01/14/21 13:38 Pulse Ox 97 01/14/21 13:38 - Orders/Labs/Meds Orders: Active Orders 24 hr Category Date Time Status Forearm 2V Lt [CR] Stat Exams 01/14/21 13:56 Taken Hip Min 2V or 3V w Pelvis Lt [CR] Stat Exams 01/14/21 14:16 Taken Wrist Comp Min 3V Lt [CR] Stat Exams 01/14/21 13:56 Taken Meds: Medications Discontinued Medications Generic Name Dose Route Start Last Admin Trade Name Abner PRN Reason Stop Dose Admin Hydrocodone Bitart/Acetaminophen 2 tab 01/14/21 13:55 01/14/21 14:02 Acetaminophen/Hydrocodone 325-5 Mg Tab PO 01/14/21 13:56 2 tab ONETIME ONE Administration - Radiology Interpretation Free Text/Narrative:: X-ray of the left wrist and left forearm shows a posterior angulated, impacted and comminuted Colles' fracture. - Re-Assessments/Exams Free Text/Narrative Re-Assessment/Exam: 01/14/21 14:20: The patient has a left wrist Colles' fracture. It is comminuted and there is an intra-articular component to the distal radius fracture. I discussed all this with the patient and with her family they have requested that I discuss the patient's case with the orthopedist at [place]. 01/14/21 14:28: I called the nursing maintenance of way supervisor at [facility] and she will have the orthopedist call me back. 01/14/21 14:40: I discussed the patient's case with AZUL Hernandez who is concert singer for Dr. Alicea, orthopedist at [place], and she recommends placing the patient in a splint and they will call her with follow-up appointment for their clinic. Departure - Departure Time of Disposition: 15:42 Disposition: Home, Self-Care 01 Condition: Good Clinical Impression: Contusion of left hip, initial encounter Left wrist fracture Qualifiers: Encounter type: initial encounter Fracture type: closed Qualified Code(s): S62.102A - Fracture of unspecified carpal bone, left wrist, initial encounter for closed fracture Fall Qualifiers: Encounter type: initial encounter Qualified Code(s): W19.XXXA - Unspecified fall, initial encounter - Discharge Information Prescriptions: Acetaminophen/HYDROcodone [HYDROcodone-Acetaminophen 5-325 MG *] 1 - 2 tab PO Q6H PRN #12 each PRN Reason: Moderate to severe pain Instructions: Cast or Splint Care, Adult, [id number], Wrist Fracture Treated With Immobilization, [id number] Referrals: Melanie Vaughan INSURANCE ATTORNEY [Primary Care Provider] - Forms: ED Department Discharge Additional Instructions: You have a fracture of your left wrist. There did not appear to be any fracture of your hip or pelvis. I discussed your case with the orthopedic doctor in [place] Dr. Alicea and they are to call you to arrange an appointment for follow-up this week. Leave the splint intact at all times. Use the sling for comfort and support. Medication as prescribed for pain (hydrocodone 5/325). Back to the emergency department for unrelenting vomiting, worsening hip pain or any other concerning signs or symptoms. Sepsis Event Note (ED) - Focused Exam Vital Signs: Vital Signs Temp Pulse Resp BP Pulse Ox 01/14/21 13:38 37.0 C 68 18 130/69 97 - My Orders Last 24 Hours: My Active Orders 01/14/21 13:56 Forearm 2V Lt [CR] Stat Wrist Comp Min 3V Lt [CR] Stat 01/14/21 14:16 Hip Min 2V or 3V w Pelvis Lt [CR] Stat - Assessment/Plan Last 24 Hours: My Active Orders 01/14/21 13:56 Forearm 2V Lt [CR] Stat Wrist Comp Min 3V Lt [CR] Stat 01/14/21 14:16 Hip Min 2V or 3V w Pelvis Lt [CR] Stat
[2021-01-14 14:08] VITALS: BP 130/69; PULSE 68
--- NOTE | 2021-01-15 11:18 | CR ---
LEFT HIP WITH PELVIS: Frontal view of the pelvis with frontal and lateral views of the left hip were obtained 01/14/21 and compared with 02/28/19. There has been what appears to be an interval fracture at the pubic symphysis on the left. There appears to be endosteal sclerosis at the fracture fragments compatible with a subacute fracture site rather than acute fracture. Overall bone density appears to be diminished. Degenerative changes are noted at the sacroiliac joints similar to the previous examination slightly more prominent on the right than left. Degenerative changes are mild at the hip joints with the joint spaces fairly symmetrical bilaterally and maintained compared with the previous study. There may be some narrowing relatively on the right superomedially of the right hip joint. A definite acute fracture or dislocation was not identified at the hip joint. IMPRESSION: 1. Healing fracture of the left pubic symphysis. 2. Osteoarthritis. 3. Demineralization suggested likely on the basis of osteoporosis - correlate clinically. MTDD
--- NOTE | 2021-01-15 11:31 | CR ---
INDICATION: Fall with injury. LEFT WRIST: Three views of the left wrist revealed comminuted fractures at the distal radial and ulnar metaphyses extending transversely and slightly obliquely at the radial fracture site and obliquely and transversely at the ulnar fracture site. There is anterior angulation at the fracture site producing dorsal angulation of the radial joint surface. The fracture does appear to be extending through the joint surface. Osteoarthritic changes of mild degree are noted at the metacarpal carpal joint and the navicular multangular joints. Demineralization is suggested compatible with osteoporosis or osteomalacia and should be correlated clinically. IMPRESSION: 1. Comminuted fractures of the distal radius and ulna - Colles fracture with anterior angulation at the fracture site. 2. Demineralization. 3. Osteoarthritis. MTDD
--- NOTE | 2021-01-15 11:33 | CR ---
INDICATION: Fall with injury. LEFT FOREARM: Frontal and lateral views of the left forearm 01/14/21 - no comparisons. Demineralization is suggested. Comminuted Colles fracture with deformity at the wrist. No other acute bone or joint abnormality was seen. MTDD
== END 2021-01-14 15:42 | disposition home or self-care (01) ==
LOC: FB.ED 13:37
DX: S52.532A Colles' fracture of left radius, initial encounter for closed fracture (principal); S52.572A Other intraarticular fracture of lower end of left radius, initial encounter for closed fracture; S70.02XA Contusion of left hip, initial encounter; I10 Essential (primary) hypertension; M19.90 Unspecified osteoarthritis, unspecified site; D64.9 Anemia, unspecified; E66.9 Obesity, unspecified; Z68.29 Body mass index [BMI] 29.0-29.9, adult; Z88.8 Allergy status to other drugs, medicaments and biological substances; Z88.5 Allergy status to narcotic agent; Z79.899 Other long term (current) drug therapy; Z79.82 Long term (current) use of aspirin; W18.30XA Fall on same level, unspecified, initial encounter
CPT/HCPCS: 29125; 73090; 73110; 73502; 99283; A9270

== ENCOUNTER 2021-11-29 18:35 | Emergency (ER) | payer MEDICARE, OTHER ==
[2021-11-29] MEDS ORDERED: Sodium Chloride 0.9% 10 ML Syringe FLUSH PRN (19:12)
[2021-11-29] MEDS ORDERED: Ondansetron 4 MG/2 ML SDV IVPUSH ONE (19:13)
[2021-11-29] MEDS ORDERED: Sodium Chloride 0.9% 1,000 ML IV SCH (19:15)
[2021-11-29 19:59] LABS: ESTIMATED GFR 74 mL/min (>60)
[2021-11-29] MEDS ORDERED: Iopamidol 755 Mg/ML 100 ML Bottle IV ONE (20:22)
[2021-11-29 22:29] VITALS: BP 154/75; PULSE 67
== END 2021-11-29 22:11 | disposition home or self-care (01) ==
LOC: FB.ED 18:35
DX: R10.32 Left lower quadrant pain (principal); K59.00 Constipation, unspecified; I10 Essential (primary) hypertension; E66.9 Obesity, unspecified; Z68.29 Body mass index [BMI] 29.0-29.9, adult; Z88.8 Allergy status to other drugs, medicaments and biological substances; Z88.6 Allergy status to analgesic agent; Z88.5 Allergy status to narcotic agent; Z79.899 Other long term (current) drug therapy; Z79.82 Long term (current) use of aspirin; Z90.49 Acquired absence of other specified parts of digestive tract
CPT/HCPCS: 36415; 74177; 80053; 81001; 82150; 83690; 85025; 96361; 96374; 99284-25; J2405; J3490; J7030; Q9967

== ENCOUNTER 2022-07-07 15:11 | Emergency (ER) | payer MEDICARE, OTHER ==
[2022-07-07 16:38] LABS: ESTIMATED GFR 84 mL/min (>60)
[2022-07-07] MEDS ORDERED: Sodium Chloride 0.9% 10 ML Syringe FLUSH PRN (17:54)
[2022-07-07] MEDS ORDERED: Ondansetron 4 MG/2 ML SDV IVPUSH ONE (17:54)
[2022-07-07] MEDS ORDERED: Sodium Chloride 0.9% 1,000 ML IV ONE (17:54)
[2022-07-07] MEDS ORDERED: Morphine 2 MG/ML SYRINGE IVPUSH ONE (17:54)
[2022-07-07] MEDS ORDERED: Sodium Chloride 0.9% 1,000 ML IV SCH (19:15)
[2022-07-07] MEDS ORDERED: HYDROmorphone 2 MG/ML SDV IVPUSH ONE (19:42)
[2022-07-07] MEDS ORDERED: cefTRIAXone 1 GM Vial IVPUSH ONE (19:43)
[2022-07-07 20:21] VITALS: BP 187/88; PULSE 64
== END 2022-07-07 20:15 ==
LOC: FB.ED 15:11
DX: K56.2 Volvulus (principal); K46.9 Unspecified abdominal hernia without obstruction or gangrene; E66.9 Obesity, unspecified; Z68.31 Body mass index [BMI] 31.0-31.9, adult; Z88.8 Allergy status to other drugs, medicaments and biological substances; Z88.6 Allergy status to analgesic agent; Z88.5 Allergy status to narcotic agent; Z79.899 Other long term (current) drug therapy; Z79.82 Long term (current) use of aspirin
CPT/HCPCS: 36415; 74176; 80053; 81001; 83605; 83690; 83735; 85025; 86140; 87086; 87088; 87186; 96361; 96374; 96375; 99285-25; J0696; J1170; J2270; J2405; J3490; J7030

== ENCOUNTER 2022-09-27 19:36 | Emergency (ER) | payer MEDICARE, OTHER ==
[2022-09-27 20:02] VITALS: BP 136/76; PULSE 74
== END 2022-09-27 22:03 | disposition home or self-care (01) ==
LOC: FB.ED 19:36
DX: S32.049A Unspecified fracture of fourth lumbar vertebra, initial encounter for closed fracture (principal); I10 Essential (primary) hypertension; K21.9 Gastro-esophageal reflux disease without esophagitis; M19.90 Unspecified osteoarthritis, unspecified site; E66.9 Obesity, unspecified; Z68.32 Body mass index [BMI] 32.0-32.9, adult; Z79.82 Long term (current) use of aspirin; Z79.899 Other long term (current) drug therapy; Z88.5 Allergy status to narcotic agent; Z88.8 Allergy status to other drugs, medicaments and biological substances; W01.0XXA Fall on same level from slipping, tripping and stumbling without subsequent striking against object, initial encounter; Y92.511 Restaurant or cafe as the place of occurrence of the external cause
CPT/HCPCS: 72131; 72192; 99283

== ENCOUNTER 2024-11-04 09:57 | Emergency (ER) | payer MEDICARE, OTHER ==
[2024-11-04] MEDS ORDERED: Sodium Chloride 0.9% 10 ML Syringe FLUSH PRN (10:12)
[2024-11-04 10:21] LABS: BASOPHILS PERCENT AUTO 0.7 % (0.2-1.5); EOSINOPHILS ABSOLUTE AUTO 0.1 x10-3/uL (0.0-0.8); EOSINOPHILS PERCENT AUTO 1.5 % (0.6-8.1); HEMOGLOBIN 12.1 g/dL (11.4-15.5); LYMPHOCYTES ABSOLUTE AUTO 1.5 x10-3/uL (1.0-4.4); LYMPHOCYTES PERCENT AUTO 23.1 % (18.4-52.1); MEAN CORPUSCULAR HEMOGLOBIN 29.2 pg (23.9-33.9); MEAN CORPUSCULAR HGB CONC 33.6 g/dL (31.9-34.8); MEAN CORPUSCULAR VOLUME 86.8 fL (76.7-100.5); MONOCYTES ABSOLUTE AUTO 0.6 x10-3/uL (0.3-1.0); MONOCYTES PERCENT AUTO 9.6 % (4.4-15.7); NEUTROPHILS ABSOLUTE AUTO 4.1 x10-3/uL (1.5-6.3); NEUTROPHILS PERCENT AUTO 65.1 % (30.8-76.2); PLATELET COUNT,PLT 201 x10(3)uL (151-488); RED BLOOD CELL COUNT 4.15 x10(6)uL (3.60-5.20); RED CELL DISTRIBUTION WIDTH 14.6 % (12.3-16.5); WHITE BLOOD CELL COUNT,WBC 6.3 x10-3/uL (3.0-10.3)
[2024-11-04 10:28] LABS: BLOOD UREA NITROGEN,BUN 20 mg/dL (7-18); CALCIUM 9.4 mg/dL (8.6-10.2); CARBON DIOXIDE,CO2 28 mmol/L (21-32); CHLORIDE,CL 104 mmol/L (100-110); EST CRCL DRUG DOSING (CG) 46.13 mL/min; ESTIMATED GFR 64 mL/min (>60); POTASSIUM,K 3.2 mmol/L (3.5-5.3); SODIUM,NA 139 mmol/L (135-145)
[2024-11-04 10:34] LABS: A/G RATIO 1.1; ALANINE AMINOTRANSFERASE,ALT 78 U/L (12-36); ALBUMIN 3.6 g/dL (3.2-4.6); ALKALINE PHOSPHATASE 88 IU/L (56-112); ASPARTATE AMNIOTRANSFERASE,AST 38 IU/L (5-25); BILIRUBIN TOTAL 0.3 mg/dL (0.1-1.3); PROTEIN TOTAL,TP 6.8 g/dL (6.0-8.0)
[2024-11-04 10:37] LABS: GLUCOSE RANDOM 43 mg/dL (80-116)
[2024-11-04] MEDS: Alum Hydroxide/Mag Hydroxide 15 ML, Lidocaine 2% 15 ML PO ONE (10:43)
[2024-11-04 12:06] LABS: APPEARANCE,URINE CLEAR (CLEAR); BILIRUBIN,URINE NEGATIVE (NEGATIVE); COLOR,URINE YELLOW (YELLOW); GLUCOSE,URINE NORMAL (NORMAL); KETONES,URINE NEGATIVE (NEGATIVE); LEUKOCYTE ESTERASE,URINE NEGATIVE (NEGATIVE); NITRITE,URINE NEGATIVE (NEGATIVE); OCCULT BLOOD,URINE NEGATIVE (NEGATIVE); PROTEIN,URINE NEGATIVE (NEGATIVE); UROBILINOGEN,URINE NORMAL (NEGATIVE)
[2024-11-04] MEDS: Potassium Chloride 20 MEQ Tab.ER PO ONE (12:36)
[2024-11-04 13:14] VITALS: BP 134/72; PULSE 65
== END 2024-11-04 12:57 | disposition home or self-care (01) ==
LOC: FB.ED 09:57
DX: K21.9 Gastro-esophageal reflux disease without esophagitis (principal); K29.70 Gastritis, unspecified, without bleeding; E87.6 Hypokalemia; E16.2 Hypoglycemia, unspecified; I10 Essential (primary) hypertension; Z90.49 Acquired absence of other specified parts of digestive tract; Z88.5 Allergy status to narcotic agent; Z88.8 Allergy status to other drugs, medicaments and biological substances; Z79.899 Other long term (current) drug therapy; Z79.82 Long term (current) use of aspirin
CPT/HCPCS: 36415; 71045; 80053; 81003; 82947; 83880; 84484; 85025; 85379; 93005; 93010; 99284; 99285; A9270-GY

== ENCOUNTER 2025-04-15 17:43 | Emergency (ER) | payer MEDICARE, OTHER, MEDICAID ==
[2025-04-15 21:12] VITALS: BP 138/69; PULSE 66
== END 2025-04-15 20:56 | disposition home or self-care (01) ==
LOC: FB.ED 17:43
DX: S40.012A Contusion of left shoulder, initial encounter (principal); I10 Essential (primary) hypertension; K21.9 Gastro-esophageal reflux disease without esophagitis; Z88.8 Allergy status to other drugs, medicaments and biological substances; Z88.5 Allergy status to narcotic agent; Z79.899 Other long term (current) drug therapy; Z79.82 Long term (current) use of aspirin; Z90.49 Acquired absence of other specified parts of digestive tract; W18.39XA Other fall on same level, initial encounter; Y93.89 Activity, other specified
CPT/HCPCS: 73200-LT; 99284